=== PATIENT | male | born 1950 | race Caucasian/White ===

== ENCOUNTER → 2019-05-08 | Outpatient (CLI) | payer OTHER ==
[~2019-05-08] MED LIST: CLARITIN-D 24 H1 TA1; CRESTOR; FLOMAX PO; LEXAPRO; NORCO 10-325 T1 EACH PO; OMEPRAZOLE; PHENERGAN 25 MG25 M1 PO
--- NOTE | 2019-05-21 21:31 | SLE ---
[facility] [place] [address] POLYSOMNOGRAPHY STUDY Name: KATELYN MCLEAN Room #: [facility]#: [id number] Admission: 05/08/19 Attend Phys: Mauricio Winters MD Discharge: Date of : 54 Report #: [id number] THIS REPORT FOR: //name// CC: Mauricio Jacobson DATE OF SERVICE: 05/08/2019 SLEEP STUDY ATTENDING PHYSICIAN: Dr. Antonio Jacobson. The patient is 68 years old who weighs 310 pounds with a BMI of 44.5. The patient's Perkins score was 4. The patient had a sleep study previously, which was a home sleep study and was found to have severe AJYLON at an AHI of 67 per hour. The patient also had nocturnal hypoxia. As a result, the patient was referred back for in-lab CPAP titration study. During the night study, the patient spent 469 minutes in bed and slept for 241 minutes with a low sleep efficiency of 51%. Sleep latency was 85 minutes with an absent REM sleep. Overall, sleep architecture showed increased stage 1 and stage 2 sleep, reduced N3 sleep and absent REM sleep. EKG monitoring revealed an average heart rate of 61 beats per minute, normal sinus rhythm. No sustained arrhythmias observed. PLMS were seen at an index of 78 per hour and 21 per hour caused EEG arousals. The patient was started on CPAP at a pressure of 14 cm of water. The patient was started on a CPAP pressure of 7 cm water and titrated up to 12 cm of water. However, the patient could not tolerate higher CPAP pressure as a result, the patient was switched to BiPAP at a pressure of 14/10. The patient finally received a maximum BiPAP pressure of 22/16. At that pressure, the patient slept for 59 minutes. The patient had no REM sleep. The patient had mostly lateral sleep during the final pressure. The patient's AHI was the best and it was 5 per hour with oxygen saturation of above 88%. IMPRESSION: 1. Severe sleep apnea diagnosed by previous sleep study. 2. 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 3. Severe periodic limb movements at an arousal index of 21 per hour. RECOMMENDATIONS: [facility] [address] [place] [address] POLYSOMNOGRAPHY STUDY Name: KATELYN MCLEAN Demi Room #: [facility]#: [id number] Admission: 05/08/19 Attend Phys: Mauricio Winters MD Discharge: Date of : 54 Report #: [id number] 1. BiPAP at 22/16 completely eliminated the patient's sleep apnea and should be used on a nightly basis. 2. Follow up in 4-6 weeks to assess compliance with BiPAP and to document clinical improvement. 3. Weight loss is strongly advised. 4. Avoid [employer] depressants. 5. Cautioned regarding driving or operating heavy machinery until symptoms of sleep apnea resolve with the use of BiPAP. 6. PLMS can be treated with dopaminergic agonist agents. The patient should also be further evaluated for symptoms of restless legs during the day. 7. If patient's insomnia persists despite effective use of BiPAP, then it should be treated according to the etiology. <ELECTRONICALLY SIGNED> By: Mauricio Winters MD 05/21/19 [id number] Mauricio Winters MD /nt
== END ==
LOC: SLEEPLAB 11:52
DX: G47.33 Obstructive sleep apnea (adult) (pediatric) (principal)